=== PATIENT | female | born 1980 | race African-American/Black ===

== ENCOUNTER → 2023-12-30 07:58 | Outpatient (REF) | payer BC, SELFPAY | LOC: PAVMRI 07:58 | PROVIDERS: ATTENDING PHYSICIAN Specialist; FAMILY PHYSICIAN Nurse Practitioner Adult Health | DX: D18.03 Hemangioma of intra-abdominal structures (principal) | CPT/HCPCS: 74183; A9575 ==

== ENCOUNTER 2024-07-27 09:09 | Emergency (ER) | payer BC, SELFPAY ==
[2024-07-27 09:36] VITALS: BP 151/93
--- NOTE | 2024-07-27 10:05 | ED.GENMED ---
History of Present Illness
<TERE Schulte - Last Filed: 07/27/24 14:28>
General
Chief Complaint: Abdominal Symptoms
Source: patient
Exam Limitations: none
Time Seen by Provider: 07/27/24 09:48
Nursing documentation reviewed up to this point in time: agreed with
History of Present Illness
History of Present Illness:
Patient is a 43-year-old female with history of ovarian vein thrombus ( 2020) presents to the ER for evaluation. Patient started with right lower quadrant pain several nights ago which has persisted. Patient now complains of pain in the lower
abdominal region but does feel pain in the right groin thigh and buttock. She denies any injury. She denies any back pain. She denies any numbness tingling weakness in extremities. She reports the thigh is very sensitive to even light touch or
wearing clothes. She denies any obvious swelling or fevers but she did have the chills last night. She denies any redness or swelling to the area patient does have a history of ovarian vein thrombus as documented in 2020 and was on Coumadin for 11
months. No prior clots since then she has no longer control. Her last menstrual period was July 14 and she does report with this rlq pain she started spotting which is not normal fo her.
Past History
<TERE Schulte - Last Filed: 07/27/24 14:28>
Past History
ED Past Medical History: None
ED Past Surgical History: None
Social History
Tobacco: Non-smoker
Alcohol: None
Drug: None
Personal:
Living: with family
Employment: Employed
Review of Systems
<TERE Schulte - Last Filed: 07/27/24 14:28>
Review of Systems
Allergies reviewed?: Yes
All Other Systems: ROS reviewed and negative except as documented in HPI and ROS
Constitutional: Reports no symptoms; Denies fever, fatigue or chills
EENT: Reports no symptoms
Respiratory: Reports no symptoms
Cardiac: Reports no symptoms
ABD/GI: Reports abdominal pain; Denies nausea, vomiting or diarrhea
: Reports no symptoms; Denies flank pain, urgency or discharge
Musculoskeletal: Reports other (pain to right leg )
Phy Exam
<TERE Schulte - Last Filed: 07/27/24 14:28>
General Physical Exam
General Presentation: no apparent distress
General age: appears stated age
General Skin: warm and dry
General Habitus: normal
General Mental: alert
Cardiovascular Exam
Cardiovascular Exam: regular rate/rhythm, no murmur and normal peripheral pulses
Pulmonary Exam
Pulmonary Exam: lungs clear and no respiratory distress
Gastrointestinal Exam
Gastrointestinal Exam: soft and other (mild tenderness to suprapubic region and rlq no guarding )
Neurological Exam
Neurological Exam: alert and oriented x3
Musculoskeletal Exam
Musculoskeletal Exam: other (Normal inspection to right lower extremity with strong pulses no obvious swelling or erythema to upper/lower leg ; mild tenderness to light touch to thigh region, no redness, no rash, full ROM to hips no discomfort )
Skin Exam
Skin Exam: normal color and warm/dry
Psychiatric Exam
Psychiatric Exam: normal mood/affect
Course
<TERE Schulte - Last Filed: 07/27/24 14:28>
Orders/Labs/Results
Orders:
Orders
07/27/24 10:22
IV Insert/Care/Rem.- Treatment PRN
Test Result ONCE
Venous Doppler Lwr Ext Rt [US Periph Venous LOWER Ext RT] Urgent
Comment:
Reason For Exam: pain to leg (thigh region)
07/27/24 10:23
CT Abd/Pel (IV only)-DH only Urgent
Comment:
Reason For Exam: rlq pain
US Pelvis W Transvag Combined Urgent
Reason For Exam: rlq pain
07/27/24 10:29
Complete Blood Count/With Diff Urgent
Comprehensive Metabolic Panel Urgent
HCG, Serum Qualitative Screen Urgent
07/27/24 13:13
Urinalysis Reflex To Culture Urgent
Date Specimen was Collected: 07/27/24
Time Specimen was Collected: 13:11
07/27/24 13:42
Ketorolac [Toradol] 15 mg IV NOW STA
Abnormal Lab Results
07/27/24
10:29
Hgb 11.6 L g/dL
(12.0-16.0)
Hct 35.0 L %
(37.0-47.0)
MCV 77.4 L fL
(81.0-99.0)
MCH 25.7 L pg
(27.0-31.0)
Glucose 102 H mg/dl
(70-99)
Alkaline Phosphatase 34 L U/L
(38-126)
07/27/24 10:29
07/27/24 10:29
Vital Signs
Initial and Last Documented VS:
Initial Vital Signs
Temp Pulse Resp BP Pulse Ox
98.4 F 84 18 151/93 99
07/27/24 09:36 07/27/24 09:36 07/27/24 09:36 07/27/24 09:36 07/27/24 09:36
Last Documented Vital Signs
Temp Pulse Resp BP Pulse Ox
98.4 F 84 18 126/83 98
07/27/24 09:36 07/27/24 09:36 07/27/24 09:36 07/27/24 13:16 07/27/24 13:16
Sales Rep consulted with Physician
Sales Rep consulted with physician?: Yes
Name of Physician Consulted: Alphonse
<Michael Cunha MD - Last Filed: 07/27/24 13:49>
Orders/Labs/Results
Orders:
Orders
07/27/24 10:22
IV Insert/Care/Rem.- Treatment PRN
Test Result ONCE
Venous Doppler Lwr Ext Rt [US Periph Venous LOWER Ext RT] Urgent
Comment:
Reason For Exam: pain to leg (thigh region)
07/27/24 10:23
CT Abd/Pel (IV only)-DH only Urgent
Comment:
Reason For Exam: rlq pain
US Pelvis W Transvag Combined Urgent
Reason For Exam: rlq pain
07/27/24 10:29
Complete Blood Count/With Diff Urgent
Comprehensive Metabolic Panel Urgent
HCG, Serum Qualitative Screen Urgent
07/27/24 13:13
Urinalysis Reflex To Culture Urgent
Date Specimen was Collected: 07/27/24
Time Specimen was Collected: 13:11
07/27/24 13:42
Ketorolac [Toradol] 15 mg IV NOW STA
Abnormal Lab Results
07/27/24
10:29
Hgb 11.6 L g/dL
(12.0-16.0)
Hct 35.0 L %
(37.0-47.0)
MCV 77.4 L fL
(81.0-99.0)
MCH 25.7 L pg
(27.0-31.0)
Glucose 102 H mg/dl
(70-99)
Alkaline Phosphatase 34 L U/L
(38-126)
07/27/24 10:29
07/27/24 10:29
Vital Signs
Initial and Last Documented VS:
Initial Vital Signs
Temp Pulse Resp BP Pulse Ox
98.4 F 84 18 151/93 99
07/27/24 09:36 07/27/24 09:36 07/27/24 09:36 07/27/24 09:36 07/27/24 09:36
Last Documented Vital Signs
Temp Pulse Resp BP Pulse Ox
98.4 F 84 18 126/83 98
07/27/24 09:36 07/27/24 09:36 07/27/24 09:36 07/27/24 13:16 07/27/24 13:16
<TERE Schulte - Last Filed: 07/27/24 14:28>
MDM/Problems Addressed
Differential Diagnosis Includes:
Not limited to appendicitis, ovarian torsion, ovarian cyst, sciatica and radicular pain less likely UTI
MDM/Problems Addressed:
Patient is a 43-year female who presented to the ER complaining of right lower abdominal pain/groin pain into the leg. She does have history ovarian vein thrombosis however at that time several years ago she was also on oral anticoagulation. She
denies any obvious injury leg denies any swelling or redness to the leg. She denies any recent fever or chills. She denies any UTI symptoms. She presents awake alert no acute distress mild lower abdominal tenderness no obvious swelling or
erythema to like she does have good range of motion to her hip area. Strong distal pulses. Denies any rash. Denies any recent illness.
CAT scans are unremarkable including normal appendix normal ovary no evidence of ovarian vein thrombosis. Patient is afebrile with a normal white count and unremarkable labs. Pt was evaluated by ED physician questionable radicular pain we will give
dose of Toradol here and will DC on steroids and gabapentin with close outpatient follow-up.
<TERE Schulte - Last Filed: 07/27/24 14:28>
*Radiology
Radiology exam reviewed: radiology read reviewed
*Pulse Oximetry
Patient hypoxic: no
*Critical Care Note
Total Time (30-74mins, 75-104mins- exclusive of procedures): Not Applicable
ED Attending Note
<TERE Schulte - Last Filed: 07/27/24 14:28>
-
Portions of this chart may have been created with voice recognition software.� Occasional wrong word or��sound alike� substitutions may have occurred due to the inherent limitations of voice recognition software.
<Michael Cunha MD - Last Filed: 07/27/24 13:49>
ED Attending Note
Patient seen and examined by attending physician: Yes
ED Attending Note:
I have seen and evaluated the patient with a [id number] encounter. I have spoken to the advance practicer provider and involved in the medical history, the physical exam, medical decision making.
Evaluation and management service: agree unless noted differently below.
Results interpretation: agree unless noted differently below.
Focused HPI: 43-year-old female with a past medical history as noted presents for evaluation of right leg pain. Patient reports that she started Thursday evening with pain in the right pelvic region/groin�she said that initially she thought perhaps
she could have pain from ovulation as she was essentially midcycle. She says that pain continued over the next few days and has worsened and is now spreading down the leg. She reports pain started in the medial aspect of the leg and groin and now
is progressing down the back of the leg and calf. She has not noticed any rash. She denies any trauma or injury. She denies similar symptoms in the past.
Physical exam: Awake alert not in distress. Vital signs notable for hypertension in triage which resolved by my assessment. She has no rash on assessment of right lower extremity. She does warm extremity with good distal pulses. No significant
edema. She does have reproducible superficial tenderness along the medial thigh, medial knee and into the posterior calf. She has some mild tenderness in the lower abdomen.
Medical Decision Makin-year-old female presents for evaluation of right pelvic/inguinal pain since has progressed to pain in the medial thigh and now progressive down the leg. Vitals and exam as above. Labs were sent off including a CBC which
showed marginal anemia, CMP which showed no clinically significant abnormalities. hCG negative. Lower ultrasound was negative for DVT. Pelvic ultrasound negative for torsion or signs of venous thrombus (she has a history of ovarian vein
thrombus). CT abdomen pelvis negative for any acute pathology. Patient has no history of chickenpox and she has no rash�shingles unlikely. Could be lumbar radiculopathy�pain does roughly trace L3 dermatome. At this point no clear emergent
pathology, we will plan to start on steroid Dosepak and can trial gabapentin for neuropathic pain and have patient follow-up with PCP for further assessment.
Discharge Plan
Departure
Patient Disposition: Home (Routine Discharge)
Date of Disposition: 07/27/24
Time of Disposition: 14:20
Patient with high blood pressure during this ER visit?: Yes
Condition: Fair
Covid-19: Not Applicable
Discharge Problem:
Leg pain
Instructions: Radiculopathy (DC), BLOOD PRESSURE
Prescriptions:
New
methylprednisolone [Medrol (Adonis)] 4 mg tablets,dose pack
See Rx Instructions .ROUTE .COMPLEX Qty: 21 0RF
Rx Instructions:
for 6 days
gabapentin 100 mg capsule
100 mg PO TID Qty: 30 0RF
No Action
Vitamins Tablet
1 tab PO HS
Saccharomyces boulardii 250 MG capsule
250 mg PO DAILY Qty: 60 0RF
warfarin [Jantoven] 5 MG tablet
15 mg PO QPM
Patient Comments:
pt takes 16mg on thursday
Referrals:
HAKAN ERWIN CRNP [Family Provider] -
Activity Restrictions/Additional Instructions:
As discussed your CAT scan and ultrasounds were negative there is no abnormality in your blood work. It is possible that this is radicular pain. You were given 1 dose of anti-inflammatory medication through the IV here in the ER and a prescription
for steroids and gabapentin was sent to your pharmacy. Take as directed. Closely follow-up however with your family doctor in the next several days for reevaluation of symptoms and return if any worsening of symptoms.
Interventions
Interventions:
*Risk Screen - Suicide Last Done: 07/27/24 09:38
*General Assessment Last Done: 07/27/24 09:38
*Neglect/Abuse Screening Last Done: 07/27/24 09:38
ED- Fall Risk Assessment Last Done: 07/27/24 09:51
*ED COVID-19 Vaccine History Last Done: 07/27/24 09:51
ED-Skin Assessment Last Done: 07/27/24 09:51
ED-Peripheral Vascular Assessment Last Done: 07/27/24 09:51
ED-Musculoskeletal Assessment Last Done: 07/27/24 09:51
Discharge Date and Time
Print Language: NAMIBIAN
[2024-07-27 10:45] LABS: % Basophils 0.7 % (0-2); % Eosinophils 3.4 % (0-6); % Immature Granulocytes 0.1 % (0-0.5); % Monocytes 6.6 % (1.7-9.3); % Neutrophils 60.2 % (42.2-75.2); Absolute Basophils 0.1 10^3/uL (0-0.2); Absolute Eosinophils 0.3 10^3/uL (0-0.7); Absolute Lymphocytes 2.2 10^3/uL (1.2-3.4); Absolute Monocytes 0.5 10^3/uL (0.1-0.6); Absolute Neutrophils 4.6 10^3/uL (1.4-6.5); Hemoglobin 11.6 g/dL (12.0-16.0); Mean Corp Hgb Conc. 33.1 g/dL (33.0-37.0); Mean Corpuscular Hgb 25.7 pg (27.0-31.0); Mean Corpuscular Volume 77.4 fL (81.0-99.0); Mean Platelet Volume 9.6 fL (7.4-10.4); Nucleated Red Blood Cells % 0 %; Platelet Count 359 10^3/uL (130-400); Red Blood Cell Count 4.52 10^6/uL (4.20-5.40); Red Cell Dist. Width 14.1 % (11.5-14.5); White Blood Cell Count 7.6 10^3/uL (4.8-10.8)
[2024-07-27 10:51] LABS: HCG, Serum Qualitative Screen Negative
[2024-07-27 10:54] LABS: ALT (SGPT) 23 U/L (0-35); AST (SGOT) 22 U/L (14-36); Albumin 4.7 g/dl (3.5-5.0); Alkaline Phosphatase 34 U/L (38-126); Blood Urea Nitrogen 10 mg/dl (7-17); Calcium 9.7 mg/dl (8.4-10.2); Carbon Dioxide 24 mmol/L (22-30); Chloride 106 mmol/L (98-107); Glucose 102 mg/dl (70-99); Potassium 4.1 mmol/L (3.5-5.1); Sodium 142 mmol/L (135-145); Total Bilirubin 0.2 mg/dl (0.2-1.3); Total Protein 7.5 g/dl (6.3-8.2); eGFR > 60.00
[2024-07-27 13:16] VITALS: BP 126/83
[2024-07-27 13:38] LABS: Urine Albumin Negative (Neg - Trace); Urine Bilirubin Negative (Negative); Urine Character Clear (Clear); Urine Color Yellow; Urine Glucose Negative (Negative); Urine Ketone Negative (Negative); Urine Leukocyte Negative (Negative); Urine Nitrite Negative (Negative); Urine Occult Blood Negative (Negative); Urine Urobilinogen Negative (Neg - 1+); Urine pH 6.5 (5.0-9.0)
[2024-07-27] MEDS: TORADOL 15 MG IV (14:13)
--- NOTE | 2024-07-27 14:45 | ED.GENMED ---
History of Present Illness
General
Chief Complaint: Abdominal Symptoms
Source: patient
Exam Limitations: none
Time Seen by Provider: 07/27/24 09:48
Nursing documentation reviewed up to this point in time: agreed with
Past History
Past History
ED Past Medical History: None
ED Past Surgical History: None
Social History
Tobacco: Non-smoker
Alcohol: None
Drug: None
Personal:
Living: with family
Employment: Employed
Course
Orders/Labs/Results
Orders:
Orders
07/27/24 10:22
IV Insert/Care/Rem.- Treatment PRN
Test Result ONCE
Venous Doppler Lwr Ext Rt [US Periph Venous LOWER Ext RT] Urgent
Comment:
Reason For Exam: pain to leg (thigh region)
07/27/24 10:23
CT Abd/Pel (IV only)-DH only Urgent
Comment:
Reason For Exam: rlq pain
US Pelvis W Transvag Combined Urgent
Reason For Exam: rlq pain
07/27/24 10:29
Complete Blood Count/With Diff Urgent
Comprehensive Metabolic Panel Urgent
HCG, Serum Qualitative Screen Urgent
07/27/24 13:13
Urinalysis Reflex To Culture Urgent
Date Specimen was Collected: 07/27/24
Time Specimen was Collected: 13:11
07/27/24 13:42
Ketorolac [Toradol] 15 mg IV NOW STA
Abnormal Lab Results
07/27/24
10:29
Hgb 11.6 L g/dL
(12.0-16.0)
Hct 35.0 L %
(37.0-47.0)
MCV 77.4 L fL
(81.0-99.0)
MCH 25.7 L pg
(27.0-31.0)
Glucose 102 H mg/dl
(70-99)
Alkaline Phosphatase 34 L U/L
(38-126)
07/27/24 10:29
07/27/24 10:29
Vital Signs
Initial and Last Documented VS:
Initial Vital Signs
Temp Pulse Resp BP Pulse Ox
98.4 F 84 18 151/93 99
07/27/24 09:36 07/27/24 09:36 07/27/24 09:36 07/27/24 09:36 07/27/24 09:36
Last Documented Vital Signs
Temp Pulse Resp BP Pulse Ox
98.4 F 84 18 126/83 98
07/27/24 09:36 07/27/24 09:36 07/27/24 09:36 07/27/24 13:16 07/27/24 13:16
ED Attending Note
-
Portions of this chart may have been created with voice recognition software.� Occasional wrong word or��sound alike� substitutions may have occurred due to the inherent limitations of voice recognition software.
Discharge Plan
Departure
Patient Disposition: Home (Routine Discharge)
Date of Disposition: 07/27/24
Time of Disposition: 14:20
Patient with high blood pressure during this ER visit?: Yes
Condition: Fair
Covid-19: Not Applicable
Discharge Problem:
Leg pain
Instructions: Radiculopathy (DC), BLOOD PRESSURE
Prescriptions:
New
methylprednisolone [Medrol (Adonis)] 4 mg tablets,dose pack
See Rx Instructions .ROUTE .COMPLEX Qty: 21 0RF
Rx Instructions:
for 6 days
gabapentin 100 mg capsule
100 mg PO TID Qty: 30 0RF
No Action
Vitamins Tablet
1 tab PO HS
Saccharomyces boulardii 250 MG capsule
250 mg PO DAILY Qty: 60 0RF
warfarin [Jantoven] 5 MG tablet
15 mg PO QPM
Patient Comments:
pt takes 16mg on thursday
Referrals:
HAKAN ERWIN CRNP [Family Provider] -
Stand Alone Forms: Return to Work
Activity Restrictions/Additional Instructions:
As discussed your CAT scan and ultrasounds were negative there is no abnormality in your blood work. It is possible that this is radicular pain. You were given 1 dose of anti-inflammatory medication through the IV here in the ER and a prescription
for steroids and gabapentin was sent to your pharmacy. Take as directed. Closely follow-up however with your family doctor in the next several days for reevaluation of symptoms and return if any worsening of symptoms.
Interventions
Interventions:
*Risk Screen - Suicide Last Done: 07/27/24 09:38
*General Assessment Last Done: 07/27/24 09:38
*Neglect/Abuse Screening Last Done: 07/27/24 09:38
ED- Fall Risk Assessment Last Done: 07/27/24 09:51
*ED COVID-19 Vaccine History Last Done: 07/27/24 09:51
ED-Skin Assessment Last Done: 07/27/24 09:51
ED-Peripheral Vascular Assessment Last Done: 07/27/24 09:51
ED-Musculoskeletal Assessment Last Done: 07/27/24 09:51
Discharge Date and Time
Print Language: MOROCCAN
[2024-07-27 14:49] VITALS: BP 128/85
== END 2024-07-27 14:55 | disposition home or self-care (01) ==
LOC: EMR 09:09
PROVIDERS: Nurse Practitioner; EMERGENCY PHYSICIAN Emergency Medicine; FAMILY PHYSICIAN Nurse Practitioner Adult Health
DX: M79.604 Pain in right leg (principal); R10.31 Right lower quadrant pain; Z86.718 Personal history of other venous thrombosis and embolism
CPT/HCPCS: 99285; 96374; 74177; 76830; 76856; 80053; 81003; 84703; 85025; 93971; Q9967

== ENCOUNTER 2025-02-11 05:14 | Emergency (ER) | payer BC, SELFPAY ==
[2025-02-11 05:30] VITALS: BP 136/83
--- NOTE | 2025-02-11 05:33 | EDRN ---
Pt has 10/10 pain mid upper abdomen/epigastric area that woke her around 1.5 hours ago. Pt thought it was indigestion so she took 20mg pepcid. Nausea when pain started, no nausea currently. No vomiting, fever/chills/cough, urinary symptoms, cp.
Pt feels sob due to pain. Pain was constant but on way to hospital it waxed and waned and is now constant. Pain described as stabbing. Pt had greek food for dinner - riblets and lo mein noodles, chicken wings earlier. No ranjit similar pain.
[2025-02-11 05:38] VITALS: BP 134/100
[2025-02-11 06:00] VITALS: BP 120/84
[2025-02-11 06:00] LABS: % Basophils 0.5 % (0-2); % Eosinophils 3.3 % (0-6); % Immature Granulocytes 0.3 % (0-0.5); % Lymphocytes 26.6 % (20.5-51.1); % Monocytes 5.2 % (1.7-9.3); % Neutrophils 64.1 % (42.2-75.2); Absolute Basophils 0.1 10^3/uL (0-0.2); Absolute Eosinophils 0.4 10^3/uL (0-0.7); Absolute Monocytes 0.6 10^3/uL (0.1-0.6); Absolute Neutrophils 7.2 10^3/uL (1.4-6.5); Hematocrit 34.4 % (37.0-47.0); Hemoglobin 11.2 g/dL (12.0-16.0); Mean Corp Hgb Conc. 32.6 g/dL (33.0-37.0); Mean Corpuscular Hgb 25.8 pg (27.0-31.0); Mean Corpuscular Volume 79.3 fL (81.0-99.0); Mean Platelet Volume 9.8 fL (7.4-10.4); Nucleated Red Blood Cells % 0 %; Platelet Count 401 10^3/uL (130-400); Red Blood Cell Count 4.34 10^6/uL (4.20-5.40); Red Cell Dist. Width 13.6 % (11.5-14.5); White Blood Cell Count 11.2 10^3/uL (4.8-10.8)
[2025-02-11 06:26] LABS: ALT (SGPT) 70 U/L (0-35); AST (SGOT) 111 U/L (14-36); Albumin 4.4 g/dl (3.5-5.0); Alkaline Phosphatase 44 U/L (38-126); Blood Urea Nitrogen 16 mg/dl (7-17); Calcium 9.9 mg/dl (8.4-10.2); Carbon Dioxide 22 mmol/L (22-30); Chloride 111 mmol/L (98-107); Estimated Creatinine Clearance 100 ml/min; Glucose 105 mg/dl (70-99); Lipase 142 U/L (23-300); Sodium 143 mmol/L (135-145); Total Bilirubin 0.3 mg/dl (0.2-1.3); Total Protein 7.5 g/dl (6.3-8.2); eGFR > 60.00
--- NOTE | 2025-02-11 06:38 | ED.GENMED ---
History of Present Illness
General
Chief Complaint: Abdominal Pain
Time Seen by Provider: 02/11/25 06:10
History of Present Illness
History of Present Illness:
44-year-old female with history of left ovarian thrombosis, currently off anticoagulation, anemia presenting to the emergency department with upper abdominal pain. Patient reports that she woke up this morning with severe upper abdominal pain with
associated nausea. [place] like she had to vomit, however could not do so. Denies any diarrhea or constipation. Does note some mild indigestion in the past, had some [place] food last evening, however this is not usually irritating to her. Denies
chest pain, dyspnea due to pain. Reports recent hysterectomy on January 18 at [place], possible significant postop complications. Denies fever or cough. Denies additional acute medical complaints
Past History
Past History
ED Past Medical History: None
ED Past Surgical History: None
Social History
Tobacco: Non-smoker
Alcohol: None
Drug: None
Personal:
Living: with family
Employment: Employed
Phy Exam
Physical Exam
Physical Exam:
General: Well-appearing, no clinical signs of dehydration, nontoxic and in no acute distress
HEENT: protecting airway
Neck: appears supple
CV: Normal heart rate, regular rhythm
Resp: No accessory muscle use, no increased work of breathing, lungs clear to auscultation bilaterally
Abd: Soft and non-distended, focal tenderness in the epigastric abdomen without rebound or guarding. Healing laparoscopic incisions
Extremities: No deformities, no swelling
Neuro: alert, no focal neurologic deficit
: deferred
Rectal: deferred
Psych: Normal affect
Skin: Intact
Course
Orders/Labs/Results
Orders:
Orders
02/11/25 05:28
IV Insert/Care/Rem.- Treatment PRN
02/11/25 05:45
Complete Blood Count/With Diff Urgent
Comprehensive Metabolic Panel Urgent
Lipase Urgent
Troponin I Urgent
02/11/25 06:34
Electrocardiogram (*1) Stat
Reason for Study: Abdominal Pain
Electrocardiogram (*1) Urgent
CT Abd/pelvis W Iv Cont Urgent
Comment:
Reason For Exam: upper abd pain, nausea, s/p hysterectomy
EKG- Treatment ONCE
Ketorolac [Toradol] 15 mg IV NOW STA
Pantoprazole [Protonix IV] 40 mg IV NOW STA
02/11/25 06:43
Ondansetron Injectable [Zofran] 4 mg IV NOW STA
02/11/25 07:19
Diphenhydramine [Benadryl] 25 mg IV NOW STA
Abnormal Lab Results
02/11/25
05:45
WBC 11.2 H 10^3/uL
(4.8-10.8)
Hgb 11.2 L g/dL
(12.0-16.0)
Hct 34.4 L %
(37.0-47.0)
MCV 79.3 L fL
(81.0-99.0)
MCH 25.8 L pg
(27.0-31.0)
MCHC 32.6 L g/dL
(33.0-37.0)
Plt Count 401 H 10^3/uL
(130-400)
Absolute Neuts (auto) 7.2 H 10^3/uL
(1.4-6.5)
Chloride 111 H mmol/L
(98-107)
Glucose 105 H mg/dl
(70-99)
AST 111 H U/L
(14-36)
ALT 70 H U/L
(0-35)
02/11/25 05:45
02/11/25 05:45
Vital Signs
Initial and Last Documented VS:
Initial Vital Signs
Temp Pulse BP Pulse Ox
97.6 F 72 136/83 99
02/11/25 05:30 02/11/25 05:30 02/11/25 05:30 02/11/25 05:30
Last Documented Vital Signs
Temp Pulse Resp BP Pulse Ox
97.6 F 70 26 120/84 100
02/11/25 05:30 02/11/25 06:00 02/11/25 06:00 02/11/25 06:00 02/11/25 05:38
MDM/Problems Addressed
MDM/Problems Addressed:
44-year-old female presenting for upper abdominal pain, acute. Vital signs are normal.
On exam patient resting comfortably, no acute distress. Notes that her pain was initially 10 out of 10, is now 5 out of 10. She took some famotidine prior to arrival. Given location of pain, suspicion for gastritis versus pancreatitis. Lower
suspicion for postop complications. Patient's incisions appear to be well-healed. Abdomen is soft and nondistended. No pain in the lower abdomen. However given that her surgery was 3 weeks ago, will screen with laboratory analysis and CT imaging
to ensure no acute complications. Will treat patient with pantoprazole, Toradol, Zofran and reassess for improvement.
08:10 -CT without significant acute pathology. Expected postsurgical changes. There is mention of constipation, which is likely contributing to patient's symptoms. She has been taking MiraLAX. Advised increasing usage of the MiraLAX. Patient
reports that she has not had a normal bowel movement in the past week. She is requesting mag citrate. Will prescribe. Otherwise advised continued usage of famotidine. Return precautions discussed and patient verbalized understanding
*Critical Care Note
Total Time (30-74mins, 75-104mins- exclusive of procedures): Not Applicable
ED Attending Note
-
Portions of this chart may have been created with voice recognition software.� Occasional wrong word or��sound alike� substitutions may have occurred due to the inherent limitations of voice recognition software.
Discharge Plan
Departure
Prescriptions:
No Action
enoxaparin [Lovenox] 40 mg/0.4 mL Syringe
40 mg SC DAILY
bupropion HCl [Wellbutrin XL] 300 mg Tablet Extended Release 24 Hr
300 mg PO DAILY
metoprolol tartrate 25 mg Tablet
25 mg PO BID
Referrals:
HAKAN ERWIN CRNP [Family Provider, General]
Interventions
Interventions:
*Risk Screen - Suicide Last Done: 02/11/25 05:20
*General Assessment Last Done: 02/11/25 05:31
*Neglect/Abuse Screening Last Done: 02/11/25 05:31
*ED- Fall Risk Assessment Last Done: 02/11/25 05:53
ZW-[id number]-[id number] Assessment Last Done: 02/11/25 05:53
Discharge Date and Time
Print Language: PANAMANIAN
[2025-02-11 06:40] LABS: Troponin I < 0.012 ng/ml
[2025-02-11] MEDS: PROTONIX IV 40 MG IV (06:43)
[2025-02-11] MEDS: TORADOL 15 MG IV (06:46)
[2025-02-11] MEDS: ZOFRAN 4 MG IV (06:50)
[2025-02-11] MEDS: BENADRYL 25 MG IV (07:34)
[2025-02-11 08:28] VITALS: BP 120/78
== END 2025-02-11 08:29 | disposition home or self-care (01) ==
LOC: EMR 05:14
PROVIDERS: Emergency Medicine; EMERGENCY PHYSICIAN Student in an Organized Health Care Education/Training Program; FAMILY PHYSICIAN Nurse Practitioner Adult Health
DX: K29.70 Gastritis, unspecified, without bleeding (principal); K59.00 Constipation, unspecified; Z86.718 Personal history of other venous thrombosis and embolism; Z79.01 Long term (current) use of anticoagulants; Z90.710 Acquired absence of both cervix and uterus
CPT/HCPCS: 96374; 96375; 99284; 74177; 80053; 83690; 84484; 85025; 93005; Q9967